=== PATIENT | male | born 1960 | race Caucasian/White ===

== ENCOUNTER 2020-02-01 | Emergency (ER) | payer BC ==
[2020-02-01] MEDS ORDERED: Aspirin 81 MG Tab.Chew PO ONE (00:05)
[2020-02-01] MEDS ORDERED: Morphine 2 MG/ML SYRINGE ONE (00:15)
[2020-02-01] MEDS ORDERED: EPINEPHrine 1:10,000 1 MG/10 ML Syringe IVPUSH ONE ×4 (00:22→00:42)
[2020-02-01] MEDS: Sodium Chloride 0.9% 10 ML Syringe FLUSH PRN ×6 (00:23→00:43)
--- NOTE | 2020-02-01 00:26 | EDM.PDOC ---
ED HPI GENERAL MEDICAL PROBLEM - General Stated Complaint: Chest Pain; SOB Time Seen by Provider: 02/01/20 00:16 Source of Information: Reports: Patient, Family History Limitations: Reports: No Limitations - History of Present Illness INITIAL COMMENTS - FREE TEXT/NARRATIVE: pt presented diaphoretic and ambulatory to ER with c/o substernal pressure type nonradiating pain and SOB, started about 2 hrs ago and waked him up from sleep , pt denies Hx of PA or pulmonary disease , or recent Hx of chest pains, report Hx of Afib, denies any other associated sx or concerns, vitals on arrival were stable, EKG shows acute ST elevation. - Related Data Allergies Allergy/AdvReac Type Severity Reaction Status Date / Time No Known Allergies Allergy Verified 08/21/13 07:41 Home Meds: Home Meds Ibuprofen [Advil] 400 mg PO Q6H PRN 08/21/13 [History] Levothyroxine 250 mcg PO DAILY 08/21/13 [History] Lisinopril/Hydrochlorothiazide [Lisinopril-Hctz 20-12.5 mg Tab] 1 tab PO DAILY 01/17/16 [History] Past Medical History Cardiovascular History: Reports: Other (See Below) Other Cardiovascular History: CAME IN WITH CHEST PAIN Respiratory History: Reports: SOB Gastrointestinal History: Reports: GERD Musculoskeletal History: Reports: Back Pain, Chronic Endocrine/Metabolic History: Reports: Hypothyroidism - Past Surgical History Respiratory Surgical History: Reports: None Endocrine Surgical History: Reports: None Musculoskeletal Surgical History: Reports: None Dermatological Surgical History: Reports: None Social & Family History - Family History Cardiac: Reports: Other (See Below) Other Cardiac Family History: Father of PA at age 47, unknown type of heart disease Musculoskeletal: Reports: Osteoarthritis, Other (See Below) Other Musculoskeletal Family History: Scoliosis Neurological: Reports: None Endocrine/Metabolic: Reports: Diabetes, type II ED ROS GENERAL - Review of Systems Review Of Systems: See Below Constitutional: Reports: Fatigue, Diaphoresis HEENT: Reports: No Symptoms Respiratory: Reports: Shortness of Breath Cardiovascular: Reports: Chest Pain, Dyspnea on Exertion. Denies: Lightheadedness, Palpitations GI/Abdominal: Reports: No Symptoms Musculoskeletal: Reports: No Symptoms Skin: Reports: No Symptoms Neurological: Reports: No Symptoms ED EXAM, GENERAL - Physical Exam Exam: See Below Exam Limited By: No Limitations General Appearance: Alert, Moderate Distress Eye Exam: Bilateral Eye: Normal Inspection Nose: Normal Inspection Throat/Mouth: Normal Inspection Head: Atraumatic, Normocephalic Neck: Normal Inspection, Supple, Non-Tender Respiratory/Chest: No Respiratory Distress, Lungs Clear, Normal Breath Sounds Cardiovascular: Normal Peripheral Pulses, Regular Rate, Rhythm. No: No Murmur, No Rub GI/Abdominal: Normal Bowel Sounds, Soft, Non-Tender Back Exam: Normal Inspection Extremities: Normal Inspection, Normal Range of Motion Neurological: Alert, Oriented, CN II-XII Intact, No Motor/Sensory Deficits Skin Exam: Warm, Diaphoretic Course - Vital Signs Text/Narrative:: EKG shows ST elevation at anterolateral leads . ASA and morphine were given. airlift was called. while attempting to consult with [employer]. pt went into full cardiac arrest . CPR was initiated immediately , on monitor pt had VF , shock at 200 was delivered with no response. pt continued after that in VF , multiple shocks and epi also amiodarone were given with no response . also 1 amp of bicarb. myself and anesthesias tried to secure airway but were unsuccessful after multiple attempts as pt has difficult anatomy and repeatedly had large emesis , LMA was unsuccessful as well, pt meanwhile was bagged through out. 15 minuets into the CODE pupils were fixed, and repeated pulse checks were negative , CPR continued , at about 25 minuets into the CODE pupils became fixed and dilated also repeat pulse check were neg , no spontaneous breathing efforts and no audible hear beats or any spontaneous movements, and tracing was turning into asystole , subsequently CODE was called off at 12:49 AM and pt was declared . .. was present in waiting room and was counseled and informed with pt outcome. Dx cardiac arrest , secondary to myocardial infraction . unsuccessful CPR pt pronounced on january 31 at 12:49 am. - Orders/Labs/Meds Labs: Laboratory Tests 02/01/20 Range/Units 00:34 POC Glucose 114 (80-116) mg/dL Meds: Medications Discontinued Medications Generic Name Dose Route Start Last Admin Trade Name Freq PRN Reason Stop Dose Admin Morphine Sulfate Confirm 02/01/20 00:15 Morphine Administered 02/01/20 00:16 Dose 4 mg .ROUTE .STK-MED ONE Departure - Departure Time of Disposition: :20 Disposition: 20 Preliminary Cause of *Q: Cardiac Arrest Clinical Impression: Myocardial infarction - Discharge Information Referrals: Hao Staton MD [Primary Care Provider] -
[2020-02-01] MEDS ORDERED: Sodium Chloride 0.9% 1,000 ML IV ONE (00:35)
[2020-02-01] MEDS ORDERED: Amiodarone 150 MG/3 ML SDV IVPUSH ONE (00:35)
[2020-02-01] MEDS ORDERED: Sodium Bicarbonate 8.4% 50 MEQ/50 ML Syringe IVPUSH ONE (00:48)
--- NOTE | 2020-02-01 01:30 | PCM.SN.2 ---
- Free Text/Narrative Note: [facility] Date: 02/01/2020 Time: 30 to 57 Dx: Cardiopulmonary Resuscitation [Witnessed] Rx: Needed Intubation Procedure: Intubation [unsuccussful] I was called for active witnessed cardiopulmonary resuscitation in the ED. The ED physician has tried to intubate without success. Continuous large amounts of thick emesis with food has occurred and continuous all most non stop. His face is very cyanotic with fixed pupils and has had defibrillation. I attempted 3 times without success. The first was with a Glidescope that was abandoned due to vomit. I was handed an LMA which was placed but emesis "shot" all over the place and was removed. The second attempt was with a #3 MAC Blade and ended in the esophagus again due to very poor visualization [vomit]. The third time, using a #3 Mac Blade, I saw the lower 1/4 of the vocal cords and p assed a 7.5 ETT tube with positive EtCO2 return. However, the physician stated in was in his stomach and did not hear breath sounds. I pulled the tube. At this point, the physician terminated the resuscitation. It should be noted that vigorous oral suctioning was almost continuous and oral ventilation proved almost impossible with the continuous thick emesis. Even after the termination of the CPR, thick green emesis with food particles continued to fill the oral- pharyngeal airway. Harlan Holland CRNA [facility]
[2020-02-01 04:58] VITALS: BP 117/81; PULSE 92
== END 2020-02-01 10:36 | disposition expired ==
LOC: FB.ED
DX: I21.9 Acute myocardial infarction, unspecified (principal); E03.9 Hypothyroidism, unspecified; Z79.899 Other long term (current) drug therapy
CPT/HCPCS: 36415; 80053; 82962; 83880; 84484; 85025; 92950; 93005; 96374; 96375; 99285; A9270; J0171; J0282; J7030